=== PATIENT | female | born 1970 | race Caucasian/White ===

== ENCOUNTER 2018-12-12 05:54 | Emergency (ER) | payer BC ==
[~2018-12-12] VITALS: Ht 170.2 cm; Wt 56.8 kg
[2018-12-12 08:55] VITALS: BP 124/83; PULSE 77; TEMP 97.8
== END 2018-12-12 08:55 | disposition home or self-care (01) ==
LOC: COL.ER 05:54
DX: S81.812A Laceration without foreign body, left lower leg, initial encounter (principal); S81.811A Laceration without foreign body, right lower leg, initial encounter; Z23 Encounter for immunization; W19.XXXA Unspecified fall, initial encounter; Y93.39 Activity, other involving climbing, rappelling and jumping off